=== PATIENT | female | born 1950 | race Caucasian/White ===

== ENCOUNTER 2016-10-09 14:21 | Emergency (ER) | payer MEDICARE, OTHER ==
--- NOTE | 2016-10-24 15:27 | ER ---
ADMIT: 10/09/2016 RM/LOC: ER [facility] MR#: [id number] [address] [place], [place] [id number] DAVID FONG [address] [place] [address] Emergency Room Report SEX: F AGE: 66 : 1950 DATE: 10/09/2016 TIME: 1445 hours. CHIEF COMPLAINT: Distended. HISTORY OF PRESENT ILLNESS: This is a 66-year-old white female with history of primary sclerosing cholangitis and biliary stenting, coming in with recurrence of ascites. She feels somewhat bloated. I did speak with Dr. Galindo, her GI doctor in [place] and he felt like she needed the paracentesis and then some lab work at this time. She has no nausea, no vomiting, no fever. PAST MEDICAL HISTORY: Significant disease of primary sclerosing cholangitis is 2014, status post stenting, status post cholecystectomy, hysterectomy, history of renal lesion, anxiety, past history of cataract and knee surgery. MEDICATIONS: See list. ALLERGIES: ERYTHROMYCIN. FAMILY SOCIAL HISTORY: Negative. REVIEW OF SYSTEMS: RESPIRATORY: Negative. CARDIOVASCULAR: Negative. Rest of review of systems is negative. PHYSICAL EXAMINATION: GENERAL: Mild distress. VITAL Signs: Stable and afebrile. She is more comfortable than anything. HEENT: Conjunctivae are clear. Nose is clear. Mouth - mucous membranes are moist. NECK: Supple, no masses. RESPIRATORY: No retracting. HEART: Regular rate and rhythm. GI: She does have palpable ascites and is distended. She has a little bit of tenderness but no acute abdomen at this time. SKIN: Warm, pink and dry. EXTREMITIES: Range of motion is grossly intact in the upper and lower extremities. W[employer] B[employer]: Alert and oriented. Motor and sensory functions are intact. IMAGING: Ultrasound was done per Interventional Radiology and paracentesis was negative for any acute findings. Chemistry, she has a creatinine of 1.6. Her albumin is low at 2.1. She did receive albumin while she was here. After the paracentesis, white count 5.4, hemoglobin 11.2. Culture and the cell ADMIT: 10/09/2016 RM/LOC: ER [facility] MR#: [id number] [address] [address] DAVID FONG [address] [place] [address] Emergency Room Report SEX: F AGE: 66 : 1950 count was obtained. I did go over this with Dr. Galindo and we felt that she does not have spontaneous peritonitis. DIAGNOSES: 1. Ascites secondary to primary sclerosing cholangitis. 2. Hypoalbuminemia. TREATMENT: She is going to have an ERCP and have the stent pulled tomorrow in [place]. She should follow up with that. She received her albumin. Continue other medication. CONDITION ON DISCHARGE: Improved. Rambo Schaefer MD/ eamon JOB #: [id number] CC: Rambo Schaefer MD, Attending Physician Rambo Motta MD, Family Physician
== END 2016-10-09 18:30 | disposition home or self-care (01) ==
LOC: ER 14:21
DX: R18.8 Other ascites (principal); K83.0 Cholangitis; F41.9 Anxiety disorder, unspecified; Z90.49 Acquired absence of other specified parts of digestive tract; Z90.710 Acquired absence of both cervix and uterus; Z88.1 Allergy status to other antibiotic agents

== ENCOUNTER → 2016-10-18 | Outpatient (CLI) | payer MEDICARE, OTHER | END | disposition home or self-care (01) | LOC: RAD.S 07:39 | PROC: 0W9G3ZZ Drainage of Peritoneal Cavity, Percutaneous Approach (ICD-10-PCS; principal; 2016-10-18) | DX: K70.31 Alcoholic cirrhosis of liver with ascites (principal); N28.89 Other specified disorders of kidney and ureter ==

== ENCOUNTER → 2016-10-31 | Outpatient (CLI) | payer MEDICARE, OTHER | END | disposition home or self-care (01) | DX: G37.3 Acute transverse myelitis in demyelinating disease of central nervous system (principal); G93.89 Other specified disorders of brain; M47.812 Spondylosis without myelopathy or radiculopathy, cervical region; M51.34 Other intervertebral disc degeneration, thoracic region; J90 Pleural effusion, not elsewhere classified ==

== ENCOUNTER → 2016-11-14 | Outpatient (CLI) | payer MEDICARE, OTHER | END | disposition home or self-care (01) | LOC: RAD.S 08:38 | DX: K70.31 Alcoholic cirrhosis of liver with ascites (principal); K83.0 Cholangitis; K76.6 Portal hypertension; K76.89 Other specified diseases of liver ==

== ENCOUNTER 2017-03-07 11:10 | Inpatient (IN) | payer MEDICARE, OTHER ==
[~2017-03-07] VITALS: Ht 172.7 cm; Wt 68.7 kg
--- NOTE | ~2017-03-07 | HP ---
ADMIT: 03/07/2017 RM/LOC: 429 [facility] MR#: [id number] [address] [facility] [address] [place] [id number] DAVID FONG [address] [place], [place] [address] History and Physical SEX: F AGE: 66 : 1950 DATE OF SERVICE: CHIEF COMPLAINT: Ileus. Inability to have bowel movement. HISTORY OF PRESENT ILLNESS: David is a very nice 66-year-old female with advanced liver disease, recently admitted to [facility] secondary to sepsis and pneumonia. She has been residing at the correction unit. She did have a drop off in her bowel movements, increased abdominal pain. She did have a mildly elevated lactic acid of 2.3; otherwise, laboratories were stable. X-ray showed ileus. She did have a rather large bowel movement with some improvement of her pain. However, lactic acid did go up to 2.9. Vital signs remained stable. Systolic pressures are approximately in the 90s. However, has not had anymore BMs since the enema. I have been in touch with the correction unit and she is clinically stable. We will go ahead and transfer her over here to the actual hospital for more close monitoring and intervention for her ileus. We will also obtain some further evaluation for elevated lactic acid. However, it is thought to be secondary to her chronic liver disease. I evaluated her at her bedside. She is accompanied by her Milton and daughter Jacinta. She actually feels okay. However, she does have some discomfort in her abdomen when we push on it. She is actually more alert and interactive and does confirm she has a full code status. She does have a sense of humor and does joke with me as well, so she is mentating relatively well. PAST MEDICAL HISTORY: All reviewed and unchanged. FAMILY HISTORY: All reviewed and unchanged. SOCIAL HISTORY: All reviewed and unchanged. REVIEW OF SYSTEMS: Reviewed and noted per HPI. PHYSICAL EXAMINATION: VITAL SIGNS: Blood pressure is 93/60. Pulse is not tachycardic on exam. She is not tachypneic. She is afebrile. She is on room air. GENERAL: She is alert and oriented x3. No acute distress. HEENT: Normocephalic and atraumatic. Extraocular muscles intact. No nasal discharge. HEART: Regular on exam. LUNGS: Anterior lung snyder are clear, but distant. ABDOMEN: Distended. It is not rigid. No rebound tenderness. However, it is uncomfortable when I push on it. EXTREMITIES: No clubbing, cyanosis, or edema. LABORATORY DATA: Laboratories from this morning obtained in the correction unit are reviewed. I do have some pending repeat laboratories and images per my admission orders. ADMIT: 03/07/2017 RM/LOC: 429 [facility] MR#: [id number] [address] [address] DAVID FONG [place] [address] [place] [address] History and Physical SEX: F AGE: 66 : 1950 ASSESSMENT AND PLAN: 1. Ileus. 2. Chronic liver disease secondary to PSC. 3. Large abdominal ascites. 4. Elevated lactic acid. Mrs. David Fong is a very nice 66-year-old female with PSC, advanced liver disease. She is awaiting a liver transplant. She did have some difficulties with increased ileus. She has moved her bowels. However, lactic acid is elevated to 2.9 from 2.3. Blood pressures have remained relatively stable with systolic pressures in the 90s. No other signs of infection or sepsis. It feels that increase in lactic acid is likely secondary to her chronic liver disease itself. However with her chronic conditions and laboratory findings, we did go ahead and bring her over here to the hospital from correction unit just for more close observation and intervention for her ileus and elevated lactic acid. I did go and give her some albumin now. Got some other laboratories and imaging is pending, and we will go ahead and have a paracentesis done on her tomorrow. I will go ahead and update the Liver Transplant Service that she was admitted to the hospital for an ileus and abnormal laboratory findings as well as fax them all of our laboratories up to this point. I discussed this plan with the patient and family, they expressed understanding, was in agreement, and had no further questions. Rambo Motta MD/ eamon JOB #: [id number] CC: Rambo Motta MD, Attending Physician Rambo Motta MD, Family Physician Liver Transplant Team [facility]
--- NOTE | 2017-03-14 17:58 | DS ---
ADMIT: 03/07/2017 RM/LOC: 429 [facility] MR#: [id number] 26[address] [facility] [address] [place] [id number] DAVID FONG [address] [place], [place] [address] Discharge Summary SEX: F AGE: 66 : 1950 ADMISSION DATE: 03/07/2017 DISCHARGE DATE: 03/11/2017 DISCHARGE DIAGNOSES: 1. Ileus. 2. Weakness. 3. Hepatic encephalopathy, resolved. 4. End-stage liver disease. 5. Chronic kidney disease. 6. Primary sclerosing cholangitis. 7. Status post cholecystectomy. 8. Status post hysterectomy. 9. History of knee surgery. 10.History of cataract surgery. 11.Paracentesis dependent ascites. 12.Anemia. 13.Hypokalemia. 14.Hypomagnesemia. HOSPITAL COURSE: The patient was admitted with the ileus and inability to have a bowel movement. She was given lactulose enemas. She was evaluated for infection. There was no obvious infection. She had IR done a paracentesis, which also was negative for infection. In general, patient was doing quite well and seemed to slowly make improvements. Her bowels were improving, and she was starting to eat a little better. She was up with PT/OT and felt stable to be discharged back to [facility]. The plan was for her to be discharged to [facility]. DISCHARGE MEDICATIONS: 1. Lactulose 30 mL p.o. q.i.d. 2. Mag oxide 400 mg p.o. b.i.d. 3. MiraLAX daily. 4. Mysoline 800 mg p.o. q.i.d. 5. Protonix 40 mg p.o. b.i.d. 6. Sodium bicarb 650 p.o. t.i.d. 7. Multivitamin p.o. daily. 8. Xifaxan 550 p.o. b.i.d. 9. Mycostatin powder topically t.i.d. P.r.n.: ADMIT: 03/07/2017 RM/LOC: 429 [facility] MR#: [id number] [address] [address] AJ[place] DAVID [place] [address] [place] [address] Discharge Summary SEX: F AGE: 66 : 1950 She did have a lactulose enema p.r.n. less than three bowel movements in 24 hours or any hard stools. She is to have a paracentesis done every 6 days and run the fluid for Gram stain and culture. She is to follow up with Dr. Motta in one week. Have a CBC, CMP, INR daily. PT/OT, skilled to evaluate. I spent 50 minutes in discharge planning and coordination of care with this patient. Emy Camara MD/ barreraf JOB #: [id number] CC: Rambo Motta MD, Attending Physician Rambo Motta MD, Family Physician
== END 2017-03-11 11:32 | DRG 389 ==
LOC: 4PCU 11:10
PROVIDERS: ADMIT Internal Medicine
PROC: 0W9G3ZX Drainage of Peritoneal Cavity, Percutaneous Approach, Diagnostic (ICD-10-PCS; principal; 2017-03-08)
PROC: 30233N1 Transfusion of Nonautologous Red Blood Cells into Peripheral Vein, Percutaneous Approach (ICD-10-PCS; 2017-03-08)
DX: K56.7 Ileus, unspecified (principal); K83.0 Cholangitis; R18.8 Other ascites; Z76.82 Awaiting organ transplant status; E83.42 Hypomagnesemia; R79.89 Other specified abnormal findings of blood chemistry; K72.90 Hepatic failure, unspecified without coma; S60.812A Abrasion of left wrist, initial encounter; D63.1 Anemia in chronic kidney disease; N18.9 Chronic kidney disease, unspecified; E87.6 Hypokalemia

== ENCOUNTER 2017-03-21 17:33 | Emergency (ER) | payer MEDICARE, OTHER ==
--- NOTE | 2017-03-23 13:09 | ER ---
ADMIT: 03/21/2017 RM/LOC: ER [facility] MR#: [id number] [address] [address] DAVID FONG [facility] [place] [address] Emergency Room Report SEX: F AGE: 66 : 1950 DATE: 03/21/2017 SUBJECTIVE: The patient is a 66-year-old female with a past medical history of chronic kidney disease, end-stage liver disease, waiting for liver transplant by [facility]; and hepatic encephalopathy, who was brought here because of the altered mental status. The patient allegedly the other day, had a paracentesis and about 5 L of fluid was taken out from the belly. The patient has been closely followed up by Dr. Motta. Per family, the patient was not verbal in the morning and was just confused and just nodding the head without answering the question. The patient was transferred to the ER. In the ER, the patient had closed eyes but opens eyes with questions or commands and answers the questions. The patient states she has no pain or distress and is oriented to person and time, but is not oriented to the place. PHYSICAL EXAMINATION: GENERAL: There are no signs of trauma. The patient is mildly lethargic and drowsy per family. The patient has been taking her lactulose regularly. NEURO: Except for what is mentioned, the rest of the neuro exam is negative and noncontributory. HEAD AND NECK. The patient is mildly cachectic. Her color is subicteric. Conjunctivae are mildly pale too. Oropharynx is normal. CHEST: Clear bilaterally. HEART: Normal heart sounds. ABDOMEN: Distended but nontender. Rest of the physical exam is negative and noncontributory. The patient has no tremor. After talking to Dr. Motta, he advised that it is better to transfer the patient for higher level of care with a diagnosis of hepatic encephalopathy and altered mental status. Lab work showed a sodium of 129, potassium of 4.1 with glucose of 137, and creatinine of 2.3. Ammonia level was 48. Chest x-ray showed left pleural effusion. [facility] was contacted and the patient was admitted by [facility] and was transferred there for pre-transplant team for further followups and treatments. Geoff Kim MD/ eamon JOB #: [id number] CC: Geoff Kim MD, Attending Physician Rambo Motta MD, Family Physician
== END 2017-03-21 21:30 | disposition short-term general hospital (02) ==
LOC: ER 17:33
DX: R41.82 Altered mental status, unspecified (principal); K72.90 Hepatic failure, unspecified without coma; N18.3 Chronic kidney disease, stage 3 (moderate); Z90.49 Acquired absence of other specified parts of digestive tract; Z90.710 Acquired absence of both cervix and uterus; Z98.890 Other specified postprocedural states; Z91.040 Latex allergy status; Z79.899 Other long term (current) drug therapy